=== PATIENT | female | born 1955 | race Caucasian/White ===

== ENCOUNTER 2016-08-18 13:15 | Emergency (ER) | payer OTHER ==
[~2016-08-18 13:15] MED LIST: SYNTHROID50 MC1 PO
[2016-08-18] MEDS ORDERED: D3-20002000 UNIT PO (13:23)
[2016-08-18] MEDS ORDERED: VITAMIN B122500 MCG PO (13:24)
[2016-08-18 14:20] LABS: BASO % 0.6 % (0-2); EOS % 0.7 % (0-7); HCT-HEMATOCRIT 43.5 % (34.0-49.0); LYMPH ABSOLUTE COUNT 1.5 tho/cmm (0.8-4.5); MCH (MEAN CORPUSCULAR HGB) 31.1 pg (28.0-32.0); MCHC MEAN CORPUSCULAR HGB CONC 34.5 % (32.0-36.0); MCV (MEAN CELL VOLUME) 90.1 fl (82.0-96.0); MEAN PLATELET VOLUME 10.1 cmc (9.4-12.4); MONO % 6.4 % (0-12); MONOCYTE ABSOLUTE COUNT 0.4 tho/cmm (0.0-1.2); NEUTROPHIL ABSOLUTE COUNT 3.6 tho/cmm (1.6-8.0); NEUTROPHIL-AUTOMATED 3.6 tho/cmm (1.6-8.0); NEUTROPHILS % 65.3 % (40-80); PLATELET COUNT 285 tho/cmm (150-450); RED BLOOD COUNT 4.83 mil/cmm (4.00-5.20); RED CELL DISTRIBUTION WIDTH 12.5 % (12.4-16.4); WHITE BLOOD COUNT 5.5 tho/cmm (4.0-10.0)
[2016-08-18 14:35] LABS: ANION GAP 12 mmol/L (0-20); BLOOD UREA NITROGEN 16 mg/dl (6-24); CALCIUM 8.9 mg/dl (8.5-10.5); CARBON DIOXIDE-VENOUS 28 mmol/L (22-32); CHLORIDE 107 mmol/l (96-110); CREATININE 0.93 mg/dl (0.50-1.10); GLUCOSE 92 mg/dL (70-110); POTASSIUM 4.4 mmol/L (3.7-5.1); SODIUM 143 mmol/L (135-145); eGFR VALUE FOR BLACK 78 mL/Min
[2016-08-18 14:38] LABS: TSH-THYROID STIMULATING HORM. 3.16 uIU/ml (0.40-3.80)
== END 2016-08-18 16:04 ==
LOC: EDMED 13:15
PROVIDERS: Emergency Medicine
DX: I49.3 Ventricular premature depolarization (principal)